=== PATIENT | male | born 1950 | race Two or more races ===

== ENCOUNTER → 2017-02-18 | Emergency (ER) | payer SELFPAY ==
[~2017-02-18] VITALS: Ht 165.1 cm; Wt 68.9 kg
[2017-02-18 14:37] VITALS: BP 132/72
--- NOTE | 2017-02-23 08:29 | Emergency Room Report ---
History of Present Illness General Chief Complaint: Laceration Source: Patient Present Illness HPI Patient presents with laceration to the top of the scalp [place] gait bar that opens and closes Struck him on the scalp This happened just prior to arrival Patient denies any loss of consciousness Patient is deaf And friend/family is also helping for history Patient denies any neck pain denies any chest pain or photophobia has discomfort to the local lacerated area 05/03 Allergies: Coded Allergies: No Known Allergies (Unverified , 02/18/17) Patient History Past Medical History: see triage record Pertinent Family History: none Reviewed Nursing Documentation: PMH: Agreed, PSxH: Agreed Review of Systems All Other Systems: negative except mentioned in HPI Physical Exam Vital Signs Date Time Temp Pulse Resp B/P (MAP) Pulse Ox O2 Delivery O2 Flow Rate FiO2 02/18/17 14:37 98.2 65 16 132/72 97 Room Air Sp02 EP Interpretation: reviewed, normal General Appearance: well appearing, no apparent distress Head: other - Approximately 1-1/2 cm laceration top parietal region, no obvious secondary hematoma Eyes: bilateral eye PERRL, bilateral eye EOMI ENT: normal pharynx Neck: full range of motion, supple Respiratory: lungs clear Cardiovascular #1: regular rate, rhythm, no edema Gastrointestinal: non tender, soft Musculoskeletal: normal inspection Neurologic: normal inspection, alert, oriented x3, responsive Skin: other - as above Lymphatic: no adenopathy Procedures Laceration/Wound Repair Laceration/Wound Repair : Consent: Verbal Wound Location: head Wound's Depth, Shape: superficial Wound Length (cm): 1 Wound Explored: no foreign body removed Irrigated w/ Saline (ccs): 200 Betadine Prep?: Yes Wound Repaired With: kiley - 4 Layer Closure?: No Sterile Dressing Applied?: No Sling Applied?: No Patient Tolerated: Well Complications: None Medical Decision Making Diagnostic Impression: Primary Impression: Laceration ER Course Patient's scalp laceration is corrected using kiley Patient is neurologically intact No loss of consciousness No secondary hematoma Patient does not meet criteria for emergency imaging At this time stable for close followup patient is also not on any blood thinners Last Vital Signs Date Time Temp Pulse Resp B/P (MAP) Pulse Ox O2 Delivery O2 Flow Rate FiO2 02/18/17 14:37 98.2 65 16 132/72 97 Room Air Status: improved Disposition: HOME, SELF-CARE Condition: Stable Referrals: NOT CHOSEN IPA/MD,REFERRING (PCP) Patient Instructions: Laceration Care, Adult, Stitches, [place], or Adhesive Wound Closure, [id number] Additional Instructions: Patient is provided with the discharge instructions notified to follow up with primary doctor in the next 2-3 days otherwise return to the er with any worsening symptoms. Please note that this report is being documented using [employer] technology. This can lead to erroneous entry secondary to incorrect interpretation by the dictating instrument. JAYME GARCIA D.O. Feb 23, 2017 08:29
== END | disposition home or self-care (01) ==
LOC: EDBD 14:33 → EMR 14:58
DX: S01.01XA Laceration without foreign body of scalp, initial encounter (principal); W22.8XXA Striking against or struck by other objects, initial encounter; Y92.89 Other specified places as the place of occurrence of the external cause
CPT/HCPCS: 99283